=== PATIENT | male | born 1985 | race Caucasian/White ===

== ENCOUNTER 2018-02-27 12:22 | Emergency (ER) | payer MEDICAID ==
[~2018-02-27] VITALS: Ht 185.4 cm; Wt 96.5 kg
[2018-02-27 14:10] LABS: BASOPHILS # (AUTO) 0.05 x10^3/uL (0-0.1); BASOPHILS % (AUTO) 1 % (0-1); EOSINOPHILS # (AUTO) 0.12 x10^3/uL (0-0.4); EOSINOPHILS % (AUTO) 2 % (1-7); LYMPHOCYTES % (AUTO) 37 % (22-44); MD NO; MEAN CORPUSCULAR HEMOGLOBIN 30.8 pg (27.5-34.5); MEAN CORPUSCULAR VOLUME 90.6 fL (81-97); MEAN PLATELET VOLUME 9.2 fL (7.4-10.4); MONOCYTES % (AUTO) 8 % (2-9); NEUTROPHILS # (AUTO) 3.31 x10^3/uL (1.8-6.8); NEUTROPHILS % (AUTO) 53 % (42-75); PLATELET COUNT 242 x10^3/uL (130-400); RED BLOOD COUNT 5.37 x10^6/uL (4.38-5.82); RED CELL DISTRIBUTION WIDTH 13.3 % (9.4-14.8)
[2018-02-27 14:21] LABS: ALANINE AMINOTRANSFERASE 54 U/L (12-78); ALBUMIN 4.5 g/dL (3.4-5.0); ANION GAP 7 mmol/L (5-15); CALCIUM 10.1 mg/dL (8.5-10.1); CHLORIDE 104 mmol/L (98-107); CREATININE 1.07 mg/dL (0.7-1.3)
[2018-02-27 14:23] LABS: ALKALINE PHOSPHATASE 77 U/L (45-117); BILIRUBIN,TOTAL 0.6 mg/dL (0.2-1.0); TOTAL PROTEIN 8.2 g/dL (6.4-8.2)
[2018-02-27 15:57] LABS: MICROSCOPIC NOT IND
[2018-02-27 16:16] LABS: CULTURE INDICATED? NO
[2018-02-27 16:26] VITALS: BP 112/73
[2018-02-27] MEDS ORDERED: MAALOX/HYOSCYAMINE/LIDOCAINE 45 ML BTL ONE (16:26)
[2018-02-27] MEDS ORDERED: MAALOX/HYOSCYAMINE/LIDOCAINE 45 ML BTL PO ONE (16:30)
== END 2018-02-27 16:34 | disposition home or self-care (01) ==
LOC: ED 16:33
DX: K21.9 Gastro-esophageal reflux disease without esophagitis (principal)
CPT/HCPCS: 36415; 76700; 80053; 81003; 83690; 85025; 99285

== ENCOUNTER 2020-08-01 04:19 | Emergency (ER) | payer MEDICAID, OTHER ==
[~2020-08-01] VITALS: Ht 185.4 cm; Wt 107.0 kg
[2020-08-01] MEDS ORDERED: FAMOTIDINE 20 MG/2 ML IV ONE (05:00)
[2020-08-01] MEDS ORDERED: SODIUM CHLORIDE 0.9% 1,000ML IVBOLUS ONE (05:00)
[2020-08-01] MEDS ORDERED: ONDANSETRON 2MG/ML, 2ML IVPush ONE (05:00)
[2020-08-01] MEDS ORDERED: SODIUM CHLORIDE FLUSH 10ML SYR IVF ONE (05:00)
[2020-08-01] MEDS ORDERED: MAALOX/HYOSCYAMINE/LIDOCAINE 45 ML BTL PO ONE (05:00)
[2020-08-01] MEDS ORDERED: ONDANSETRON 2MG/ML, 2ML ONE (05:04)
[2020-08-01] MEDS ORDERED: MAALOX/HYOSCYAMINE/LIDOCAINE 45 ML BTL ONE (05:04)
[2020-08-01] MEDS ORDERED: FAMOTIDINE 20 MG/2 ML ONE (05:04)
--- NOTE | 2020-08-01 05:14 | NUR ---
URINE SAMPLE PROVIDED BY PT. LABELED AND SENT TO LAB. PT MEDICATED PER EMAR. 5 RIGHTS ADDRESSED. PER ALVARO GUERRA, HOLD GI COCKTAIL FOR NOW. PT STILL DRY HEAVING WHILE ADMINISTERING MEDS.
[2020-08-01 05:34] LABS: MICROSCOPIC INDICATED
[2020-08-01 05:54] LABS: MEAN CORPUSCULAR HEMOGLOBIN 30.1 pg (27.5-34.5); MEAN CORPUSCULAR HGB CONC 33.3 g/dL (33.2-36.2); MEAN CORPUSCULAR VOLUME 90.4 fL (81-97); MEAN PLATELET VOLUME 10.9 fL (7.4-10.4); PLATELET COUNT 194 x10^3/uL (130-400); RED BLOOD COUNT 5.38 x10^6/uL (4.38-5.82); RED CELL DISTRIBUTION WIDTH 13.5 % (9.4-14.8)
[2020-08-01 06:00] LABS: INTERNATIONAL NORMALIZED RATIO 1.07 (0.93-1.1)
[2020-08-01 06:03] LABS: ALBUMIN 4.1 g/dL (3.4-5.0); ANION GAP 12 mmol/L (5-15); CHLORIDE 105 mmol/L (98-107)
[2020-08-01 06:06] LABS: ALANINE AMINOTRANSFERASE 31 U/L (12-78); ALKALINE PHOSPHATASE 83 U/L (45-117); BILIRUBIN,TOTAL 0.7 mg/dL (0.2-1.0); CALCIUM 10.6 mg/dL (8.5-10.1); CREATININE 1.07 mg/dL (0.7-1.3); TOTAL PROTEIN 7.4 g/dL (6.4-8.2)
--- NOTE | 2020-08-01 06:15 | NUR ---
PT SLEEPING. VITALS STABLE. WILL CONTINUE TO MONITOR.
[2020-08-01 06:16] VITALS: BP 132/74
[2020-08-01 06:19] LABS: BASOPHILS # (AUTO) 0.01 x10^3/uL (0-0.1); BASOPHILS % (AUTO) 0 % (0-1); EOSINOPHILS % (AUTO) 0 % (1-7); LYMPHOCYTES # (AUTO) 1.27 x10^3/uL (1-3.4); LYMPHOCYTES % (AUTO) 8 % (22-44); MD SCAN; MONOCYTES # (AUTO) 1.34 x10^3/uL (0.2-0.8); MONOCYTES % (AUTO) 8 % (2-9); NEUTROPHILS # (AUTO) 14.27 x10^3/uL (1.8-6.8); NEUTROPHILS % (AUTO) 85 % (42-75)
--- NOTE | 2020-08-01 06:37 | NUR ---
PT AMBULATORY TO RESTROOM. STEADY GAIT. PT REPORTS FEELING BETTER AND HAVING RELIEF OF NAUSEA AT THIS TIME, STATING "I FEEL MOSTLY BETTER, STILL A LITTLE NAUSEOUS BUT NOT BAD". PT DENIES ANY NEEDS. ALL VITALS STABLE.
[2020-08-01] MEDS ORDERED: DIPH,PERTUSS(ACELL),TET VAC/PF 0.5 ML IM-VACC ONE (08:06)
[2020-08-01] MEDS ORDERED: OMNIPAQUE 350 MG/ML, 100ML BOTTLE ONE (08:41)
== END 2020-08-01 09:35 | disposition home or self-care (01) ==
LOC: ED 06:39
DX: K29.00 Acute gastritis without bleeding (principal); R10.84 Generalized abdominal pain; R11.2 Nausea with vomiting, unspecified
CPT/HCPCS: 36415; 74177; 80053; 81001; 83690; 85025; 85610; 87086; 93005; 96361; 96374; 96375; 99285; J2405; J3490; J7030; Q9967

== ENCOUNTER 2020-08-02 04:58 | Emergency (ER) | payer SELFPAY ==
[~2020-08-02] VITALS: Ht 185.4 cm; Wt 100.0 kg
[2020-08-02] MEDS ORDERED: METOCLOPRAMIDE 5 MG/ML, 2ML ONE (05:16)
[2020-08-02] MEDS ORDERED: DIPHENHYDRAMINE 50 MG/ML, 1ML ONE (05:16)
[2020-08-02] MEDS ORDERED: MORPHINE SULFATE 4 MG/ML, 1ML ONE (05:16)
[2020-08-02] MEDS ORDERED: MORPHINE SULFATE 4 MG/ML, 1ML IVPush PRN (05:30)
[2020-08-02] MEDS ORDERED: DIPHENHYDRAMINE 50 MG/ML, 1ML IVPush ONE (05:30)
[2020-08-02] MEDS ORDERED: SODIUM CHLORIDE 0.9% 1,000ML IVBOLUS ONE (05:30)
[2020-08-02] MEDS ORDERED: METOCLOPRAMIDE 5 MG/ML, 2ML IVPush ONE (05:30)
[2020-08-02 06:29] LABS: ALANINE AMINOTRANSFERASE 32 U/L (12-78); ALBUMIN 3.7 g/dL (3.4-5.0); ANION GAP 8 mmol/L (5-15); CALCIUM 9.1 mg/dL (8.5-10.1); CHLORIDE 104 mmol/L (98-107); CREATININE 1.11 mg/dL (0.7-1.3)
[2020-08-02 06:31] LABS: ALKALINE PHOSPHATASE 75 U/L (45-117); BILIRUBIN,TOTAL 0.8 mg/dL (0.2-1.0); TOTAL PROTEIN 6.8 g/dL (6.4-8.2)
[2020-08-02 06:47] VITALS: BP 101/60
[2020-08-02 06:54] LABS: MEAN CORPUSCULAR HGB CONC 33.2 g/dL (33.2-36.2); MEAN CORPUSCULAR VOLUME 90.4 fL (81-97); MEAN PLATELET VOLUME 10.7 fL (7.4-10.4); PLATELET COUNT 159 x10^3/uL (130-400); RED BLOOD COUNT 5.16 x10^6/uL (4.38-5.82); RED CELL DISTRIBUTION WIDTH 13.1 % (9.4-14.8)
--- NOTE | 2020-08-02 06:54 | NUR ---
Report given to DAMIEN Solorzano. Patient care transferred.
[2020-08-02 06:55] LABS: BASOPHILS # (AUTO) 0.04 x10^3/uL (0-0.1); BASOPHILS % (AUTO) 0 % (0-1); EOSINOPHILS % (AUTO) 0 % (1-7); LYMPHOCYTES # (AUTO) 2.04 x10^3/uL (1-3.4); LYMPHOCYTES % (AUTO) 18 % (22-44); MD SCAN; MONOCYTES # (AUTO) 1.21 x10^3/uL (0.2-0.8); MONOCYTES % (AUTO) 11 % (2-9); NEUTROPHILS % (AUTO) 70 % (42-75)
--- NOTE | 2020-08-02 07:07 | NUR ---
SBAR BEDSIDE REPORT RECEIVED FROM DAMIEN KERN. ASSUMING CARE OF PATIENT.
--- NOTE | 2020-08-02 07:57 | NUR ---
Patient given discharge instructions and they have confirmed that they understand the instructions. Patient ambulatory with steady gait.
== END 2020-08-02 07:58 | disposition home or self-care (01) ==
LOC: ED 06:25
DX: R10.84 Generalized abdominal pain (principal); R11.2 Nausea with vomiting, unspecified; E87.6 Hypokalemia; F12.10 Cannabis abuse, uncomplicated
CPT/HCPCS: 36415; 80053; 83690; 85025; 96374; 96375; 99284; J1200; J2270; J2765; J7030

== ENCOUNTER 2020-08-02 10:56 | Inpatient (IN) | payer MEDICAID, OTHER ==
[~2020-08-02] VITALS: Ht 185.4 cm; Wt 97.8 kg
[2020-08-02] MEDS ORDERED: PROMETHAZINE 25 MG/ML, 1ML ONE (11:26)
[2020-08-02] MEDS ORDERED: PROMETHAZINE 25 MG/ML, 1ML IM ONE (11:30)
--- NOTE | 2020-08-02 12:33 | NUR ---
PT RESTING IN [facility]. AWAITING ROOM FOR ADM
[2020-08-02] MEDS ORDERED: POTASSIUM CHLORIDE 40 MEQ in SODIUM CHLORIDE 0.9% 500 ML IV ONE (13:00)
--- NOTE | 2020-08-02 13:24 | NUR ---
REPORT TO ARUN QUEZADA FOR ROOM 345
[2020-08-02] MEDS: ENOXAPARIN 40 MG/0.4 ML SQ SCH (15:25)
[2020-08-02] MEDS: ONDANSETRON 2MG/ML, 2ML IVPush PRN (15:25)
[2020-08-02 15:28] VITALS: BP 134/88
[2020-08-02] MEDS: MORPHINE SULFATE 4 MG/ML, 1ML IVPush PRN ×2 (15:51→22:19)
[2020-08-02 19:56] VITALS: BP 113/75
[2020-08-02] MEDS: D5%-0.45NACL+KCL 20MEQ 1,000 ML IV SCH (20:00)
[2020-08-02] MEDS: NICOTINE 14MG/24 HR PATCH.TD24 TD SCH (22:59)
[2020-08-03 01:07] VITALS: BP 111/74
[2020-08-03] MEDS: D5%-0.45NACL+KCL 20MEQ 1,000 ML IV SCH ×2 (02:43→09:20)
[2020-08-03] MEDS: ONDANSETRON 2MG/ML, 2ML IVPush PRN (04:24)
[2020-08-03] MEDS: MORPHINE SULFATE 4 MG/ML, 1ML IVPush PRN ×2 (04:24→08:12)
[2020-08-03 07:02] VITALS: BP 125/87
[2020-08-03] MEDS: PANTOPRAZOLE 40 MG IV IVPush SCH (08:12)
[2020-08-03] MEDS: METOCLOPRAMIDE 5 MG/ML, 2ML IVPush PRN ×3 (08:12→20:31)
[2020-08-03 08:15] LABS: MEAN CORPUSCULAR HGB CONC 32.9 g/dL (33.2-36.2); MEAN PLATELET VOLUME 10.6 fL (7.4-10.4); PLATELET COUNT 160 x10^3/uL (130-400); RED BLOOD COUNT 5.21 x10^6/uL (4.38-5.82); RED CELL DISTRIBUTION WIDTH 13.8 % (9.4-14.8)
[2020-08-03 08:18] LABS: ALANINE AMINOTRANSFERASE 31 U/L (12-78); ALBUMIN 3.7 g/dL (3.4-5.0); ANION GAP 3 mmol/L (5-15); CALCIUM 8.7 mg/dL (8.5-10.1); CHLORIDE 109 mmol/L (98-107); CREATININE 1.03 mg/dL (0.7-1.3)
[2020-08-03 08:20] LABS: ALKALINE PHOSPHATASE 73 U/L (45-117); BILIRUBIN,TOTAL 0.7 mg/dL (0.2-1.0); TOTAL PROTEIN 6.8 g/dL (6.4-8.2)
[2020-08-03] MEDS: PROMETHAZINE 25 MG/ML, 1ML IM PRN ×3 (08:43→20:31)
[2020-08-03 08:52] LABS: BASOPHILS # (AUTO) 0.04 x10^3/uL (0-0.1); BASOPHILS % (AUTO) 0 % (0-1); EOSINOPHILS % (AUTO) 0 % (1-7); LYMPHOCYTES # (AUTO) 1.57 x10^3/uL (1-3.4); LYMPHOCYTES % (AUTO) 10 % (22-44); MD SCAN; MONOCYTES # (AUTO) 1.13 x10^3/uL (0.2-0.8); MONOCYTES % (AUTO) 7 % (2-9); NEUTROPHILS # (AUTO) 13.58 x10^3/uL (1.8-6.8); NEUTROPHILS % (AUTO) 83 % (42-75)
[2020-08-03] MEDS ORDERED: POTASSIUM PHOSPHATE 44 MEQ in SODIUM CHLORIDE 0.9% 500 ML IV ONE (10:30)
[2020-08-03] MEDS: ENOXAPARIN 40 MG/0.4 ML SQ SCH (13:56)
[2020-08-03 14:27] VITALS: BP 137/86
[2020-08-03] MEDS: HYDROmorphone 1 MG/ML, 1ML INJ IV PRN ×2 (15:04→22:09)
[2020-08-03 20:17] VITALS: BP 121/73
[2020-08-03] MEDS: NICOTINE 14MG/24 HR PATCH.TD24 TD SCH (22:10)
[2020-08-04 00:18] VITALS: BP 119/77
[2020-08-04] MEDS: D5%-0.45NACL+KCL 20MEQ 1,000 ML IV SCH ×3 (02:00→17:15)
[2020-08-04] MEDS: METOCLOPRAMIDE 5 MG/ML, 2ML IVPush PRN (04:19)
[2020-08-04 05:28] LABS: CHLORIDE 109 mmol/L (98-107)
[2020-08-04 05:36] LABS: BASOPHILS # (AUTO) 0.04 x10^3/uL (0-0.1); BASOPHILS % (AUTO) 0 % (0-1); EOSINOPHILS # (AUTO) 0.05 x10^3/uL (0-0.4); EOSINOPHILS % (AUTO) 1 % (1-7); LYMPHOCYTES % (AUTO) 30 % (22-44); MD NO; MEAN CORPUSCULAR HEMOGLOBIN 29.9 pg (27.5-34.5); MEAN CORPUSCULAR HGB CONC 32.5 g/dL (33.2-36.2); MEAN PLATELET VOLUME 10.6 fL (7.4-10.4); MONOCYTES # (AUTO) 0.88 x10^3/uL (0.2-0.8); MONOCYTES % (AUTO) 9 % (2-9); NEUTROPHILS # (AUTO) 5.92 x10^3/uL (1.8-6.8); NEUTROPHILS % (AUTO) 60 % (42-75); PLATELET COUNT 159 x10^3/uL (130-400); RED CELL DISTRIBUTION WIDTH 13.4 % (9.4-14.8)
[2020-08-04 05:39] LABS: ANION GAP 5 mmol/L (5-15); CALCIUM 8.8 mg/dL (8.5-10.1); CREATININE 0.94 mg/dL (0.7-1.3)
[2020-08-04] MEDS: POTASSIUM ACID PHOSPHATE 500 MG TABLET.SOL PO SCH ×4 (06:17→23:28)
[2020-08-04 07:34] VITALS: BP 122/75
[2020-08-04] MEDS: PANTOPRAZOLE 40 MG IV IVPush SCH (08:36)
[2020-08-04] MEDS ORDERED: HYDROmorphone 1 MG/ML, 1ML INJ IV PRN (09:00)
[2020-08-04 13:25] VITALS: BP 112/78
[2020-08-04] MEDS: ENOXAPARIN 40 MG/0.4 ML SQ SCH (17:15)
[2020-08-04 19:24] VITALS: BP 128/85
[2020-08-04] MEDS: NICOTINE 14MG/24 HR PATCH.TD24 TD SCH (23:28)
[2020-08-05] MEDS: D5%-0.45NACL+KCL 20MEQ 1,000 ML IV SCH ×4 (01:01→16:55)
[2020-08-05 01:50] VITALS: BP 125/80
[2020-08-05 04:49] LABS: ANION GAP 6 mmol/L (5-15); CALCIUM 9.1 mg/dL (8.5-10.1); CHLORIDE 108 mmol/L (98-107); CREATININE 0.96 mg/dL (0.7-1.3)
[2020-08-05 04:51] LABS: MEAN CORPUSCULAR HEMOGLOBIN 30.3 pg (27.5-34.5); MEAN CORPUSCULAR HGB CONC 33.5 g/dL (33.2-36.2); PLATELET COUNT 180 x10^3/uL (130-400); RED BLOOD COUNT 5.22 x10^6/uL (4.38-5.82); RED CELL DISTRIBUTION WIDTH 13.3 % (9.4-14.8)
[2020-08-05 05:27] LABS: BASOPHILS # (AUTO) 0.05 x10^3/uL (0-0.1); BASOPHILS % (AUTO) 0 % (0-1); EOSINOPHILS # (AUTO) 0.05 x10^3/uL (0-0.4); EOSINOPHILS % (AUTO) 0 % (1-7); LYMPHOCYTES # (AUTO) 2.77 x10^3/uL (1-3.4); LYMPHOCYTES % (AUTO) 27 % (22-44); MD SCAN; MONOCYTES # (AUTO) 1.11 x10^3/uL (0.2-0.8); MONOCYTES % (AUTO) 11 % (2-9); NEUTROPHILS # (AUTO) 6.33 x10^3/uL (1.8-6.8); NEUTROPHILS % (AUTO) 62 % (42-75)
[2020-08-05 07:18] VITALS: BP 111/79
[2020-08-05] MEDS: PANTOPRAZOLE 40 MG IV IVPush SCH (07:59)
[2020-08-05 14:00] VITALS: BP 134/82
[2020-08-05] MEDS: ENOXAPARIN 40 MG/0.4 ML SQ SCH (15:00)
[2020-08-05] MEDS: NICOTINE 14MG/24 HR PATCH.TD24 TD SCH (20:14)
[2020-08-05 20:27] VITALS: BP_SYST 109; BP_SYST 112; BP_DIAS 69; BP_DIAS 74
[2020-08-06 00:51] VITALS: BP 124/85
[2020-08-06] MEDS: D5%-0.45NACL+KCL 20MEQ 1,000 ML IV SCH ×2 (05:26→11:00)
[2020-08-06] MEDS: PANTOPRAZOLE 40 MG IV IVPush SCH (08:25)
[2020-08-06 08:49] VITALS: BP 110/77
[2020-08-06 12:57] VITALS: BP 119/88
[2020-08-06] MEDS: ENOXAPARIN 40 MG/0.4 ML SQ SCH (15:00)
== END 2020-08-06 16:42 | disposition home or self-care (01) | DRG 392 ==
LOC: ED 11:16 → EDIP 11:55 → SUATTDRO 12:32 → 2NW 13:40 → 3N 13:43 → DCLOUNGE 08-06 16:21
PROVIDERS: ADMIT Internal Medicine; ATTEND Internal Medicine
DX: R11.2 Nausea with vomiting, unspecified (principal); D72.829 Elevated white blood cell count, unspecified; E83.39 Other disorders of phosphorus metabolism; E87.6 Hypokalemia; F12.90 Cannabis use, unspecified, uncomplicated; K21.9 Gastro-esophageal reflux disease without esophagitis; K76.0 Fatty (change of) liver, not elsewhere classified; Z83.79 Family history of other diseases of the digestive system; Z86.19 Personal history of other infectious and parasitic diseases; Z91.018 Allergy to other foods
CPT/HCPCS: 36415; 80048; 80053; 83735; 84100; 85025; 96372; 96374; 96375; 99285; G0378; J1170; J1650; J2405; J2550; J3480; C9113; J2270; J2765; J7040

== ENCOUNTER 2020-08-08 17:08 | Emergency (ER) | payer MEDICAID ==
[~2020-08-08] VITALS: Ht 185.4 cm; Wt 100.0 kg
[2020-08-08] MEDS ORDERED: HALOPERIDOL 5 MG/ML IM PRN (18:00)
[2020-08-08] MEDS ORDERED: HALOPERIDOL 5 MG/ML ONE (18:11)
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
--- NOTE | 2020-08-08 19:10 | NUR ---
assumed care of pt. report keaton Baird RN. pt her for being altered. pt is sitting up on gurney in no apparent distress. no family at bedside. pt is mildly agitated. pt updated on POC
[2020-08-08 19:23] LABS: BASOPHILS % (AUTO) 0 % (0-1); EOSINOPHILS # (AUTO) 0.01 x10^3/uL (0-0.4); EOSINOPHILS % (AUTO) 0 % (1-7); LYMPHOCYTES # (AUTO) 1.67 x10^3/uL (1-3.4); LYMPHOCYTES % (AUTO) 17 % (22-44); MD NO; MEAN CORPUSCULAR HEMOGLOBIN 30.3 pg (27.5-34.5); MEAN CORPUSCULAR HGB CONC 33.7 g/dL (33.2-36.2); MEAN PLATELET VOLUME 11.5 fL (7.4-10.4); MONOCYTES # (AUTO) 0.76 x10^3/uL (0.2-0.8); MONOCYTES % (AUTO) 8 % (2-9); NEUTROPHILS # (AUTO) 7.69 x10^3/uL (1.8-6.8); NEUTROPHILS % (AUTO) 76 % (42-75); PLATELET COUNT 206 x10^3/uL (130-400); RED BLOOD COUNT 5.65 x10^6/uL (4.38-5.82); RED CELL DISTRIBUTION WIDTH 13.5 % (9.4-14.8)
[2020-08-08 19:24] LABS: ANION GAP 9 mmol/L (5-15); CALCIUM 10.4 mg/dL (8.5-10.1); CHLORIDE 104 mmol/L (98-107)
[2020-08-08 19:26] LABS: CREATININE 1.26 mg/dL (0.7-1.3)
--- NOTE | 2020-08-08 20:20 | NUR ---
Dr. Fowler has bene to bedside for recheck. pt to be D/C
[2020-08-08] MEDS ORDERED: PROMETHAZINE 25MG TABLET PO PRN (20:30)
--- NOTE | 2020-08-08 20:35 | NUR ---
entered room to D/C pt to find pt spitting on the floor. pt is in no resp. distress and states that he wants this RN to inspect an online post that his sister sent to him regarding pancreatitis. informes pt that advice cannot be given regarding unk web based resources
== END 2020-08-08 20:54 | disposition home or self-care (01) ==
LOC: ED 18:23
DX: R11.2 Nausea with vomiting, unspecified (principal); R10.84 Generalized abdominal pain
CPT/HCPCS: 36415; 80048; 85025; 96372; 99283; J1630

== ENCOUNTER 2020-08-11 18:22 | Emergency (ER) | payer MEDICAID ==
[~2020-08-11] VITALS: Ht 170.2 cm; Wt 80.0 kg
[2020-08-11 20:33] VITALS: BP 138/77
== END 2020-08-11 20:34 | disposition home or self-care (01) ==
LOC: ED 19:45
DX: Z00.00 Encounter for general adult medical examination without abnormal findings (principal); R19.5 Other fecal abnormalities
CPT/HCPCS: 36415; 82103; 82104; 99283

== ENCOUNTER 2020-08-25 02:08 | Emergency (ER) | payer MEDICAID ==
[~2020-08-25] VITALS: Ht 180.3 cm; Wt 95.0 kg
[2020-08-25 02:25] VITALS: BP 132/78
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
--- NOTE | 2020-08-25 03:10 | NUR ---
Erik layton provided for safe pt departure
== END 2020-08-25 03:12 | disposition home or self-care (01) ==
LOC: ED 02:21
DX: F41.1 Generalized anxiety disorder (principal); K21.9 Gastro-esophageal reflux disease without esophagitis; Z72.9 Problem related to lifestyle, unspecified
CPT/HCPCS: 99283

== ENCOUNTER 2020-09-30 10:55 | Emergency (ER) | payer MEDICAID ==
[~2020-09-30] VITALS: Ht 185.4 cm; Wt 98.0 kg
[2020-09-30 11:06] VITALS: BP 118/74
--- NOTE | 2020-09-30 11:15 | NUR ---
PT IS A 35/M BIB EMS AFTER CALLING HIS MENTAL HEALTH PROVIDER STATING SI. "MOTHER RECENTLY LEFT HIM" EMS STATED HE HAD SWORDS AT HOME. PT IS A&O X4 WITH A FLAT AFFECT. HE IS COOPERATIVE AT THIS TIME. ROOM SECURED, SITTER AT DOOR, ORDERED MEAL TRAY AND PROVIDED WARM BLANKET.
[2020-09-30 11:52] LABS: BASOPHILS % (AUTO) 1 % (0-1); EOSINOPHILS % (AUTO) 1 % (1-7); LYMPHOCYTES % (AUTO) 29 % (22-44); MEAN CORPUSCULAR HGB CONC 33.9 g/dL (33.2-36.2); MEAN PLATELET VOLUME 8.7 fL (7.4-10.4); MONOCYTES % (AUTO) 9 % (2-9); NEUTROPHILS % (AUTO) 61 % (42-75); PLATELET COUNT 248 x10^3/uL (130-400); RED BLOOD COUNT 4.78 x10^6/uL (4.38-5.82); RED CELL DISTRIBUTION WIDTH 14.1 % (9.4-14.8)
[2020-09-30 12:01] LABS: ALANINE AMINOTRANSFERASE 51 U/L (12-78); ALBUMIN 3.7 g/dL (3.4-5.0); ANION GAP 6 mmol/L (5-15); CALCIUM 9.1 mg/dL (8.5-10.1); CHLORIDE 117 mmol/L (98-107); CREATININE 0.85 mg/dL (0.7-1.3)
[2020-09-30 12:03] LABS: ALKALINE PHOSPHATASE 95 U/L (45-117); BILIRUBIN,TOTAL 0.5 mg/dL (0.2-1.0); TOTAL PROTEIN 6.9 g/dL (6.4-8.2)
[2020-09-30 12:07] LABS: SALICYLATE LEVEL < 1.7 mg/dL (2.8-20.0)
[2020-09-30 12:12] LABS: MD NO
--- NOTE | 2020-09-30 12:49 | NUR ---
PER SENG GRAY, PT WILL BE ON AN L2K
--- NOTE | 2020-09-30 13:30 | NUR ---
Patient given discharge instructions and they have confirmed that they understand the instructions. Patient ambulatory with steady gait. Addendum: 09/30/20 at 1331 by ARMIDA KATHIE KOVACS
== END 2020-09-30 13:34 | disposition home or self-care (01) ==
LOC: ED 13:32
DX: F43.21 Adjustment disorder with depressed mood (principal); R45.851 Suicidal ideations; K21.9 Gastro-esophageal reflux disease without esophagitis; F17.200 Nicotine dependence, unspecified, uncomplicated
CPT/HCPCS: 36415; 80053; 80307; 85025; 99284

== ENCOUNTER 2020-10-03 19:33 | Emergency (ER) | payer MEDICAID ==
[~2020-10-03] VITALS: Ht 185.4 cm; Wt 107.0 kg
--- NOTE | 2020-10-03 20:20 | NUR ---
PT CAME IN CO OF SUICDAL THOUGHTS. PT STATES HE DOESNT HAVE A SPECIFIC PLAN AT THE MOMENT. "THERES LOTS OF WAYS I COULD DO IT. I JUST NEED THE RIGHT TIME AND PLACE. I ONCE HELD RAZOR BLADES TO MY WRISTS A LONG TIME AGO". CURRENTLY WORKING ON GETTING PT ACCEPTED UPSTAIRS TO [facility]
--- NOTE | 2020-10-03 21:15 | NUR ---
NURSE HEAD: PT HAS NO ACTIVE PLAN FOR SI. PT SEEN BY DR NATION. REPORT GIVEN TO DAMIEN MONZON
--- NOTE | 2020-10-03 21:20 | NUR ---
THIS RN TO DO Q15M CHECKS ON OBSERVATION CHECKLIST FOR PATIENTS AT RISK FOR SUICIDE, DOCUMENTATION WILL BE WITH PAPER CHARTING.
--- NOTE | 2020-10-03 21:20 | NUR ---
REPORT RECEIVED FROM KIP QUEZADA
--- NOTE | 2020-10-03 21:35 | NUR ---
ALL PERSONAL BELONGINGS REMOVED FROM PT.
[2020-10-03 21:36] VITALS: BP 110/66
--- NOTE | 2020-10-03 21:50 | NUR ---
PT RESTING IN GURNEY, FLAT AFFECT. NO NEEDS AT THIS TIME. FREQUENT ROUNDING IN PLACE
--- NOTE | 2020-10-03 22:08 | NUR ---
PER DR NATION, PT WILL NOT BE PLACED ON LEGAL HOLD. PT PENDING [facility] APPROVAL VOLUNTARY ADMIT. IN DR NATION IF PT DENIED BY [facility] PT WILL BE DC AND PROVIDED OUTPATIENT RESOUCES.
--- NOTE | 2020-10-03 22:30 | NUR ---
PER DR NATION PT WILL BE ACCEPTED IN U AT 0000 ON A LEGAL HOLD AND RAPID COVID SWAB DONE. DR NATION STATED HE WILL START THE LEGAL HOLD. DR NATION AT BEDSIDE TO DO COVID SWAB. PT VERBALIZES UNDRSTANDING OF POC.
--- NOTE | 2020-10-03 23:37 | NUR ---
UA SENT TO LAB
[2020-10-04 00:04] LABS: BASOPHILS % (AUTO) 1 % (0-1); EOSINOPHILS % (AUTO) 1 % (1-7); LYMPHOCYTES % (AUTO) 20 % (22-44); MEAN CORPUSCULAR HEMOGLOBIN 29.9 pg (27.5-34.5); MEAN CORPUSCULAR HGB CONC 32.9 g/dL (33.2-36.2); MEAN PLATELET VOLUME 8.7 fL (7.4-10.4); MONOCYTES % (AUTO) 6 % (2-9); NEUTROPHILS % (AUTO) 72 % (42-75); PLATELET COUNT 250 x10^3/uL (130-400); RED BLOOD COUNT 4.63 x10^6/uL (4.38-5.82); RED CELL DISTRIBUTION WIDTH 14.3 % (9.4-14.8)
[2020-10-04 00:05] LABS: MD NO
--- NOTE | 2020-10-04 00:07 | NUR ---
REPORT GIVEN TO [facility]
[2020-10-04 00:11] LABS: ANION GAP 4 mmol/L (5-15); CHLORIDE 110 mmol/L (98-107); CREATININE 1.17 mg/dL (0.7-1.3)
[2020-10-04 00:12] LABS: AMPHETAMINE SCREEN, URINE Negative (Negative); BARBITURATE SCREEN, URINE Negative (Negative); BENZODIAZEPINE SCREEN, URINE Negative (Negative); CANNABINOID SCREEN, URINE Positive (Negative); COCAINE SCREEN, URINE Negative (Negative); METHADONE SCREEN, URINE Negative (Negative); OPIATE SCREEN, URINE Negative (Negative)
[2020-10-04 00:16] LABS: SALICYLATE LEVEL < 1.7 mg/dL (2.8-20.0)
--- NOTE | 2020-10-04 00:54 | NUR ---
PT RESTING IN [facility], NO NEEDS AT THIS TIME.
== END 2020-10-04 01:35 ==
LOC: ED 21:20
DX: R45.851 Suicidal ideations (principal); F33.9 Major depressive disorder, recurrent, unspecified; Z20.828 Contact with and (suspected) exposure to other viral communicable diseases; K21.9 Gastro-esophageal reflux disease without esophagitis
CPT/HCPCS: 36415; 80048; 80299; 80307; 80320; 80329; 85025; 87635; 99285; G0480

== ENCOUNTER 2020-10-03 23:51 | Inpatient (IN) | payer MEDICAID ==
[~2020-10-03] VITALS: Ht 185.4 cm; Wt 98.1 kg
[2020-10-04] MEDS ORDERED: DOCUSATE 100 MG CAPSULE PO PRN
[2020-10-04] MEDS ORDERED: POLYETHYLENE GLYCOL 17 GM PACKET PO PRN
[2020-10-04] MEDS ORDERED: ONDANSETRON ODT 4 MG PO PRN
[2020-10-04] MEDS ORDERED: BISACODYL 10 MG SUPP PR PRN
[2020-10-04] MEDS ORDERED: ACETAMINOPHEN 325 MG TABLET PO PRN
[2020-10-04 01:33] VITALS: BP 122/82
[2020-10-04 01:47] VITALS: BP 122/82
[2020-10-04 02:26] LABS: CHOL/HDL RATIO 3.6; FREE T4 (FREE THYROXINE) 1.06 ng/dL (0.76-1.46)
[2020-10-04] MEDS ORDERED: FLU VACC QS2020-21(6MOS UP)/PF 60MCG/0.5 ML SYR IM-VACC ONE (02:30)
[2020-10-04] MEDS: NICOTINE 14MG/24 HR PATCH.TD24 TD SCH (02:31)
[2020-10-04 02:39] LABS: MICROSCOPIC NOT IND
[2020-10-04] MEDS ORDERED: FLU VACC QS2020-21(6MOS UP)/PF 60MCG/0.5 ML SYR IM ONE (06:00)
[2020-10-04 07:28] VITALS: BP 99/69
[2020-10-04] MEDS: SUCRALFATE 1 GM/10 ML UDC PO SCH ×3 (14:08→20:30)
[2020-10-04] MEDS: PANTOPRAZOLE 40MG TABLET PO SCH (14:08)
[2020-10-04 19:34] VITALS: BP 111/74
[2020-10-04] MEDS: QUETIAPINE 25MG TABLET PO SCH (20:30)
[2020-10-05] MEDS: PANTOPRAZOLE 40MG TABLET PO SCH (05:43)
[2020-10-05 07:10] VITALS: BP 106/63
[2020-10-05] MEDS: SUCRALFATE 1 GM/10 ML UDC PO SCH ×4 (08:24→20:06)
[2020-10-05] MEDS: NICOTINE 14MG/24 HR PATCH.TD24 TD SCH (08:26)
[2020-10-05] MEDS: CARIPRAZINE 4.5 MG PO SCH (10:30)
[2020-10-05 19:09] VITALS: BP 98/62
[2020-10-05] MEDS: QUETIAPINE 25MG TABLET PO SCH (20:06)
[2020-10-05 21:08] VITALS: BP 110/57
[2020-10-06] MEDS: PANTOPRAZOLE 40MG TABLET PO SCH (05:33)
[2020-10-06 07:01] VITALS: BP 90/56
[2020-10-06] MEDS: SUCRALFATE 1 GM/10 ML UDC PO SCH ×4 (08:18→21:05)
[2020-10-06] MEDS: NICOTINE 14MG/24 HR PATCH.TD24 TD SCH (08:19)
[2020-10-06] MEDS: CARIPRAZINE 4.5 MG PO SCH (08:20)
[2020-10-06] MEDS ORDERED: ESCITALOPRAM 10MG TABLET PO SCH (09:00)
[2020-10-06 19:05] VITALS: BP 98/64
[2020-10-06] MEDS: QUETIAPINE 25MG TABLET PO SCH (21:10)
[2020-10-07] MEDS: PANTOPRAZOLE 40MG TABLET PO SCH (05:30)
[2020-10-07 07:18] VITALS: BP 114/70
[2020-10-07] MEDS: SUCRALFATE 1 GM/10 ML UDC PO SCH ×4 (07:29→21:05)
[2020-10-07] MEDS: NICOTINE 14MG/24 HR PATCH.TD24 TD SCH ×2 (08:16→08:38)
[2020-10-07] MEDS: ESCITALOPRAM 10MG TABLET PO SCH (08:17)
[2020-10-07] MEDS: CARIPRAZINE 4.5 MG PO SCH (08:17)
[2020-10-07 19:20] VITALS: BP 115/68
[2020-10-07] MEDS: METHOCARBAMOL 500 MG TABLET PO PRN (21:05)
[2020-10-07] MEDS: QUETIAPINE 25MG TABLET PO SCH (21:05)
[2020-10-08] MEDS: PANTOPRAZOLE 40MG TABLET PO SCH (06:23)
[2020-10-08 07:00] VITALS: BP 104/66
[2020-10-08] MEDS: SUCRALFATE 1 GM/10 ML UDC PO SCH ×4 (07:51→21:02)
[2020-10-08] MEDS: ESCITALOPRAM 10MG TABLET PO SCH (08:08)
[2020-10-08] MEDS: NICOTINE 14MG/24 HR PATCH.TD24 TD SCH (08:09)
[2020-10-08] MEDS: CARIPRAZINE 4.5 MG PO SCH (08:10)
[2020-10-08 20:00] VITALS: BP 115/65
[2020-10-08] MEDS: QUETIAPINE 25MG TABLET PO SCH (21:02)
[2020-10-08] MEDS: METHOCARBAMOL 500 MG TABLET PO PRN (21:02)
[2020-10-09] MEDS: PANTOPRAZOLE 40MG TABLET PO SCH (05:51)
[2020-10-09 07:26] VITALS: BP 108/66
[2020-10-09] MEDS: SUCRALFATE 1 GM/10 ML UDC PO SCH ×4 (07:58→20:40)
[2020-10-09] MEDS: ESCITALOPRAM 10MG TABLET PO SCH (08:26)
[2020-10-09] MEDS: NICOTINE 14MG/24 HR PATCH.TD24 TD SCH (08:27)
[2020-10-09] MEDS: CARIPRAZINE 4.5 MG PO SCH (08:27)
[2020-10-09] MEDS ORDERED: SODIUM CHLORIDE NASAL SPRAY 45ML BOTTLE NAS PRN (11:30)
[2020-10-09 20:00] VITALS: BP 104/70
[2020-10-09] MEDS: METHOCARBAMOL 500 MG TABLET PO PRN (20:40)
[2020-10-09] MEDS: QUETIAPINE 25MG TABLET PO SCH (20:40)
[2020-10-10] MEDS: PANTOPRAZOLE 40MG TABLET PO SCH (05:48)
[2020-10-10 07:26] VITALS: BP 118/73
[2020-10-10] MEDS: CARIPRAZINE 4.5 MG PO SCH (07:45)
[2020-10-10] MEDS: SUCRALFATE 1 GM/10 ML UDC PO SCH ×4 (07:45→21:04)
[2020-10-10] MEDS: NICOTINE 14MG/24 HR PATCH.TD24 TD SCH (07:45)
[2020-10-10] MEDS: ESCITALOPRAM 10MG TABLET PO SCH (07:45)
[2020-10-10] MEDS ORDERED: NICO-486 TD (12:33)
[2020-10-10] MEDS ORDERED: PANT40TA6 PO (12:33)
[2020-10-10] MEDS ORDERED: CARI4.5C PO (12:33)
[2020-10-10] MEDS ORDERED: ESCI10TA PO (12:33)
[2020-10-10] MEDS ORDERED: SUCR1ORA5 PO (12:33)
[2020-10-10] MEDS ORDERED: QUET25TA7 PO (12:33)
[2020-10-10 20:13] VITALS: BP 116/78
[2020-10-10] MEDS: QUETIAPINE 25MG TABLET PO SCH (21:03)
[2020-10-10] MEDS: METHOCARBAMOL 500 MG TABLET PO PRN (21:03)
[2020-10-11] MEDS: SUCRALFATE 1 GM/10 ML UDC PO SCH ×3 (06:00→10:52)
[2020-10-11] MEDS: PANTOPRAZOLE 40MG TABLET PO SCH (06:00)
[2020-10-11 07:30] VITALS: BP 91/56
[2020-10-11] MEDS: CARIPRAZINE 4.5 MG PO SCH (08:16)
[2020-10-11] MEDS: ESCITALOPRAM 10MG TABLET PO SCH (08:16)
[2020-10-11] MEDS: NICOTINE 14MG/24 HR PATCH.TD24 TD SCH (08:16)
== END 2020-10-11 15:00 | disposition home or self-care (01) | DRG 885 ==
LOC: 3E 10-04 01:31
PROVIDERS: ADMIT Psychiatry & Neurology Psychosomatic Medicine; ATTEND Psychiatry & Neurology Psychosomatic Medicine
DX: F33.2 Major depressive disorder, recurrent severe without psychotic features (principal); R45.851 Suicidal ideations; F12.10 Cannabis abuse, uncomplicated; F17.210 Nicotine dependence, cigarettes, uncomplicated; F41.1 Generalized anxiety disorder; K21.9 Gastro-esophageal reflux disease without esophagitis; G47.00 Insomnia, unspecified; K59.00 Constipation, unspecified; Z20.828 Contact with and (suspected) exposure to other viral communicable diseases; Z59.0 Homelessness; Z79.899 Other long term (current) drug therapy; Z23 Encounter for immunization
CPT/HCPCS: 36415; 71045; 80061; 81003; 82607; 84439; 84443; 90686; 93005

== ENCOUNTER 2021-06-25 16:34 | Emergency (ER) | payer MEDICAID, OTHER ==
[~2021-06-25] VITALS: Ht 190.5 cm; Wt 95.3 kg
[~2021-06-25 16:34] MED LIST: CARI4.5C PO; ESCI10TA97 PO; NICO-486 TD; PANT40TA6 PO; QUET25TA7 PO; SUCR1ORA5 PO
[2021-06-25] MEDS ORDERED: ONDANSETRON ODT 4 MG ONE (17:12)
[2021-06-25] MEDS ORDERED: SODIUM CHLORIDE FLUSH 10ML SYR IVF ONE (17:30)
[2021-06-25] MEDS ORDERED: SODIUM CHLORIDE 0.9% 1,000ML IVBOLUS ONE (17:30)
[2021-06-25] MEDS ORDERED: ONDANSETRON ODT 4 MG PO ONE (17:30)
[2021-06-25] MEDS ORDERED: PLEASE ENTER HEIGHT AND WEIGHT MC SCH (17:30)
[2021-06-25 17:41] LABS: MEAN CORPUSCULAR HEMOGLOBIN 29.7 pg (27.5-34.5); MEAN CORPUSCULAR HGB CONC 33.7 g/dL (33.2-36.2); MEAN PLATELET VOLUME 10.3 fL (7.4-10.4); PLATELET COUNT 218 x10^3/uL (130-400); RED CELL DISTRIBUTION WIDTH 13.9 % (9.4-14.8)
[2021-06-25 17:53] LABS: ALBUMIN 4.3 g/dL (3.4-5.0); ANION GAP 12 mmol/L (5-15); CALCIUM 10.7 mg/dL (8.5-10.1); CHLORIDE 106 mmol/L (98-107)
[2021-06-25 17:56] LABS: ALANINE AMINOTRANSFERASE 31 U/L (12-78); ALKALINE PHOSPHATASE 97 U/L (45-117); BILIRUBIN,TOTAL 0.5 mg/dL (0.2-1.0); CREATININE 1.14 mg/dL (0.7-1.3); TOTAL PROTEIN 8.8 g/dL (6.4-8.2)
[2021-06-25 18:27] LABS: <PLATELET ESTIMATE> ADEQUATE; <PLT MORPHOLOGY> NORMAL PLT MORPH; <RBC MORPHOLOGY> NORMAL; BAND#(MANUAL) 0.14 x10^3/uL; BANDS%(MANUAL) 1 % (0-7); LYMPH#(MANUAL) 0.97 x10^3/uL (1-3.4); LYMPHS% (MANUAL) 7 % (22-44); MONOS#(MANUAL) 0.14 x10^3/uL (0.3-2.7); MONOS% (MANUAL) 1 % (2-9); SEG#(MANUAL) 12.65 x10^3/uL (1.8-6.8); SEGS% (MANUAL) 91 % (42-75)
--- NOTE | 2021-06-25 18:49 | NUR ---
REPORT TO DAMIEN PEDRO.
--- NOTE | 2021-06-25 19:22 | NUR ---
PATIENT TO CT AT THIS TIME
[2021-06-25] MEDS ORDERED: ONDANSETRON 2MG/ML, 2ML IVPush ONE (19:30)
[2021-06-25] MEDS ORDERED: HYDROmorphone 1 MG/ML, 1ML INJ IV ONE (19:30)
[2021-06-25] MEDS ORDERED: ONDANSETRON 2MG/ML, 2ML ONE (19:31)
[2021-06-25] MEDS ORDERED: HYDROmorphone 2 MG/ML, 1ML ONE (19:32)
[2021-06-25 20:00] VITALS: BP 105/60
--- NOTE | 2021-06-25 20:53 | NUR ---
Patient given discharge instructions and they have confirmed that they understand the instructions. Patient ambulatory with steady gait. NAD, all questions answered appropriately, denies additional needs at this time. No personal belongings left in room after discharge.
[2021-06-25] MEDS ORDERED: OMNIPAQUE 350 MG/ML, 100ML BOTTLE ONE (23:57)
== END 2021-06-25 20:55 | disposition home or self-care (01) ==
LOC: ED 20:00
DX: K52.9 Noninfective gastroenteritis and colitis, unspecified (principal); R11.2 Nausea with vomiting, unspecified; K21.9 Gastro-esophageal reflux disease without esophagitis
CPT/HCPCS: 36415; 74177; 80053; 83690; 85025; 96361; 96374; 96375; 99285; J1170; J2405; J7030; Q0162; Q9967

== ENCOUNTER 2021-06-27 08:38 | Emergency (ER) | payer OTHER, MEDICAID ==
[~2021-06-27] VITALS: Ht 177.8 cm; Wt 80.0 kg
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
[2021-06-27] MEDS ORDERED: ONDANSETRON 2MG/ML, 2ML ONE (09:15)
[2021-06-27] MEDS ORDERED: FAMOTIDINE 20 MG/2 ML ONE (09:16)
[2021-06-27 09:26] LABS: BASOPHILS % (AUTO) 1 % (0-1); EOSINOPHILS % (AUTO) 0 % (1-7); LYMPHOCYTES % (AUTO) 13 % (22-44); MEAN CORPUSCULAR HGB CONC 33.8 g/dL (33.2-36.2); MEAN PLATELET VOLUME 10.1 fL (7.4-10.4); MONOCYTES % (AUTO) 5 % (2-9); NEUTROPHILS % (AUTO) 82 % (42-75); PLATELET COUNT 178 x10^3/uL (130-400); RED BLOOD COUNT 4.81 x10^6/uL (4.38-5.82)
[2021-06-27] MEDS ORDERED: FAMOTIDINE 20 MG/2 ML IVPush ONE (09:30)
[2021-06-27] MEDS ORDERED: SODIUM CHLORIDE FLUSH 10ML SYR IVF ONE (09:30)
[2021-06-27] MEDS ORDERED: SODIUM CHLORIDE 0.9% 1,000ML IVBOLUS ONE (09:30)
[2021-06-27] MEDS ORDERED: ONDANSETRON 2MG/ML, 2ML IVPush ONE (09:30)
--- NOTE | 2021-06-27 09:33 | NUR ---
PATIENT RESTING COMFORTABLY AFTER MEDS
[2021-06-27 09:36] LABS: ALANINE AMINOTRANSFERASE 29 U/L (12-78); ALBUMIN 3.9 g/dL (3.4-5.0); ANION GAP 8 mmol/L (5-15); CALCIUM 9.4 mg/dL (8.5-10.1); CHLORIDE 107 mmol/L (98-107); CREATININE 1.01 mg/dL (0.7-1.3)
[2021-06-27 09:39] LABS: ALKALINE PHOSPHATASE 77 U/L (45-117); BILIRUBIN,TOTAL 0.7 mg/dL (0.2-1.0); TOTAL PROTEIN 7.3 g/dL (6.4-8.2)
--- NOTE | 2021-06-27 10:07 | NUR ---
PATIENT SLEEPING WITHOUT ANY DISCOMFORT AT THIS TIME
[2021-06-27] MEDS ORDERED: LORazepam 2 MG/ML, 1ML ONE (11:11)
[2021-06-27] MEDS ORDERED: LORazepam 2 MG/ML, 1ML IVPush ONE (11:30)
--- NOTE | 2021-06-27 12:01 | NUR ---
Patient/Caregiver given discharge instructions and they have confirmed that they understand the instructions. Patient request to be wheeled out in a wheel chair. tax cab voucher provided along with a work note. [facility] pateint stated understanding
[2021-06-27 12:02] VITALS: BP 120/78
== END 2021-06-27 12:04 | disposition home or self-care (01) ==
LOC: ED 09:19
DX: R11.2 Nausea with vomiting, unspecified (principal); K21.9 Gastro-esophageal reflux disease without esophagitis; F17.200 Nicotine dependence, unspecified, uncomplicated
CPT/HCPCS: 36415; 80053; 83690; 85025; 96361; 96374; 96375; 99284; J2060; J2405; J7030

== ENCOUNTER 2021-06-28 10:45 | Emergency (ER) | payer OTHER, MEDICAID ==
[~2021-06-28] VITALS: Ht 185.4 cm; Wt 93.8 kg
[2021-06-28 10:52] VITALS: BP 124/82
--- NOTE | 2021-06-28 11:20 | NUR ---
BIBA [facility]/O [facility] SINCE THIS AM, HX CYCLIC VOMITING SYND, +EDIBLES BUT DENIES RECENT MARIJAUNA INHALATION; 4MG ZOFRAN CHEMICAL TREATMENT OPERATOR
[2021-06-28] MEDS ORDERED: HALOPERIDOL 5 MG/ML ONE (11:48)
--- NOTE | 2021-06-28 11:52 | NUR ---
MEDICATED PER EMAR FOR N/V (08/20) PATIENT UPDATED ON ESTIMATED POC
[2021-06-28] MEDS ORDERED: HALOPERIDOL 5 MG/ML IM PRN (12:00)
--- NOTE | 2021-06-28 13:11 | NUR ---
WITH REASSESSMENT PATIENT DEEP ASLEEP (VOMITING CEASED), EVEN AND UNLABORED CHEST RISE NOTED
--- NOTE | 2021-06-28 13:30 | NUR ---
RECEIVED REPORT FROM JESUS QUEZADA. PT SLEEPING CALMLY ON GURNEY, NAD WITH EQUAL CHEST RISE/FALL, NO NEEDS AT THIS TIME, CALL LIGHT WITHIN REACH.
--- NOTE | 2021-06-28 13:30 | NUR ---
REPORT TO KINA QUEZADA
== END 2021-06-28 15:13 | disposition home or self-care (01) ==
LOC: ED 11:26
DX: R11.2 Nausea with vomiting, unspecified (principal); R10.9 Unspecified abdominal pain; R07.9 Chest pain, unspecified; K21.9 Gastro-esophageal reflux disease without esophagitis; F17.200 Nicotine dependence, unspecified, uncomplicated
CPT/HCPCS: 96372; 99283; J1630